=== PATIENT | male | born 1965 | race Caucasian/White ===

== ENCOUNTER 2021-07-01 14:36 | Emergency (ER) | payer BC ==
[2021-07-01] MEDS ORDERED: Lidocaine 1% 30 ML SDV INJECT ONE (15:06)
[2021-07-01] MEDS ORDERED: Diphtheria,Pertussis(Acell),Tetanus Vaccine 0.5 ML Syringe IM ONE (15:06)
[2021-07-01] MEDS ORDERED: Bacitracin Oint 1 GM U/D Packet TOP ONE (15:15)
--- NOTE | 2021-07-01 15:21 | EDM.PDOC ---
Scribed by Nirali Toth 07/01/21 1520 for Clifton Emery MD ED HPI GENERAL MEDICAL PROBLEM - General Chief Complaint: Laceration Stated Complaint: FISH HOOK IN LEFT THUMB Time Seen by Provider: 07/01/21 15:03 Source of Information: Reports: Patient, RN, RN Notes Reviewed History Limitations: Reports: No Limitations - History of Present Illness INITIAL COMMENTS - FREE TEXT/NARRATIVE: Patient presents to the ED by POV stating that he has a fishhook in his left thumb. Tetanus is not up to date. Onset: Today Duration: Constant Location: Reports: Upper Extremity, Left Quality: Reports: Ache Severity: Moderate Improves with: Reports: None Worsens with: Reports: None Associated Symptoms: Reports: No Other Symptoms Review of Systems - Review of Systems Review Of Systems: Comprehensive ROS is negative, except as noted in HPI. ED EXAM, GENERAL - Physical Exam Exam: See Below Exam Limited By: No Limitations General Appearance: Alert, WD/WN, No Apparent Distress Head: Atraumatic, Normocephalic Respiratory/Chest: No Respiratory Distress Cardiovascular: Normal Peripheral Pulses Extremities: Other (Fish hook in left thumb, no active bleeding, no sign of infection) Neurological: Alert, Oriented, No Motor/Sensory Deficits Psychiatric: Normal Mood Skin Exam: Warm, Dry ED TRAUMA EXTREMITY PROCEDURES - Additional/Other Procedure(s) Other (Free Text) Procedure(s): Fish hook removal left thumb: wound cleansed and soaked, local infiltrate with Lidocaine 1% 3cc. Shank grasped with large needle front loader residential driver and hook tip and kavya forced through the skin, then kavya end grasped and hook pulled through and removed in its entirety. No residual FB, no active bleeding. Wound cleansed and dressed by RN. Course - Orders/Labs/Meds Orders: Active Orders 24 hr Category Date Time Status Vaccines to be Administered [RC] PER UNIT ROUTINE Care 07/01/21 15:06 Active Bacitracin [Bacitracin Oint 1 GM] Med 07/01/21 15:15 Once 1 dose TOP ONETIME ONE Meds: Medications Discontinued Medications Generic Name Dose Route Start Last Admin Trade Name Freq PRN Reason Stop Dose Admin Diphtheria/Tetanus/Acell Pertussis 0.5 ml 07/01/21 15:06 Diphtheria,Pertussis(Acell),Tetanus Vaccine 0.5 Ml Syringe IM 07/01/21 15:07 .ONCE ONE Lidocaine HCl 30 ml 07/01/21 15:06 Lidocaine 1% 30 Ml Sdv INJECT 07/01/21 15:07 ONETIME ONE Departure - Departure Time of Disposition: 15:20 Disposition: Home, Self-Care 01 Condition: Good Clinical Impression: Fish hook injury of left thumb Qualifiers: Encounter type: initial encounter Qualified Code(s): S69.92XA - Unspecified injury of left wrist, hand and finger(s), initial encounter - Discharge Information *PRESCRIPTION DRUG MONITORING PROGRAM REVIEWED*: Not Applicable *COPY OF PRESCRIPTION DRUG MONITORING REPORT IN PATIENT [place]: Not Applicable Instructions: Puncture Wound, [id number] Forms: ED Department Discharge Additional Instructions: Follow up in clinic if any signs of infection develop. - My Orders Last 24 Hours: My Active Orders 07/01/21 15:06 Vaccines to be Administered [RC] PER UNIT ROUTINE 07/01/21 15:15 Bacitracin [Bacitracin Oint 1 GM] 1 dose TOP ONETIME ONE - Assessment/Plan Last 24 Hours: My Active Orders 07/01/21 15:06 Vaccines to be Administered [RC] PER UNIT ROUTINE 07/01/21 15:15 Bacitracin [Bacitracin Oint 1 GM] 1 dose TOP ONETIME ONE I have read and agree with the documentation that has been completed regarding this visit. By signing this record, I attest that the documentation was completed in my physical presence and is an accurate record of the encounter.
== END 2021-07-01 15:34 | disposition home or self-care (01) ==
LOC: DL.ED 14:36
DX: S60.352A Superficial foreign body of left thumb, initial encounter (principal); Z23 Encounter for immunization; W45.8XXA Other foreign body or object entering through skin, initial encounter
CPT/HCPCS: 90471; 90715; 99283